=== PATIENT | male | born 1955 | race Caucasian/White ===

== ENCOUNTER 2025-02-20 12:01 | Day surgery (SDC) | payer OTHER, SELFPAY ==
[2025-02-20] VITALS (9 sets, daily range): BP systolic 125–149; BP diastolic 80–99; BMI 26.1
--- NOTE | 2025-02-20 15:17 | ITS.CL.PN ---
[facility] - Procedure Note
Procedure
Procedure Note:
CARDIAC CATHETERIZATION REPORT
Date of Procedure: 02/20/2025
Referring: Tyrone Munoz MD
Indication: Cardiomyopathy, NSVT
PROCEDURE(S)
1. left heart catheterization
2. coronary angiography
ACCESS: 6F right radial artery (closure: radial band)
CATHETERS
1. 6F JR4
2. 6F JL3.5
MODERATE SEDATION: 25 minutes of moderate sedation was utilized. An independent medical accounts receivable specialist was present to assist with and help manage the patient's level of consciousness and physiologic status.
HEMODYNAMIC DATA
LV 130/9 (EDP 14) mmHg
AO 136/78 (mean 102) mmHg
CORONARY ANGIOGRAPHY
Dominance: Right
LM: Large, normal
LAD: Large vessel giving rise to a small D1, moderate caliber D2, and wrapping around the apex. There are trivial luminal irregularities only.
LCx: Large vessel giving rise to a large OM1 and large LPL branch. There are mild luminal irregularities.
RCA: Large vessel giving rise to a moderate caliber RPDA and small RPL branch. There are mild luminal irregularities.
RADIATION: dose to 60.9 mGy; DAP 21.1838 Gy*cm2; fluoroscopy time 1.9 min
CONCLUSIONS
1. Nonobstructive coronary artery disease as described in a right dominant system
2. Mildly elevated LV filling pressure and no aortic stenosis
RECOMMENDATIONS
1. Primary prevention of coronary artery disease
2. Continue management of nonischemic cardiomyopathy
Copy to: Tyrone Munoz MD (electronic equipment installer); Veronique Mackenzie DO (PCP)
Signed: Atul Keith MD, PhD
== END 2025-02-20 18:00 | disposition home or self-care (01) ==
LOC: CATH 12:01
PROVIDERS: ATTENDING PHYSICIAN Student in an Organized Health Care Education/Training Program; FAMILY PHYSICIAN Family Medicine; OTHER PHYSICIAN Internal Medicine Cardiovascular Disease
DX: I25.10 Atherosclerotic heart disease of native coronary artery without angina pectoris (principal); I47.20 Ventricular tachycardia, unspecified; I42.9 Cardiomyopathy, unspecified; I42.8 Other cardiomyopathies; I10 Essential (primary) hypertension; E78.5 Hyperlipidemia, unspecified; Z86.73 Personal history of transient ischemic attack (TIA), and cerebral infarction without residual deficits; N40.0 Benign prostatic hyperplasia without lower urinary tract symptoms; I77.810 Thoracic aortic ectasia; Z79.82 Long term (current) use of aspirin; Z79.899 Other long term (current) drug therapy
CPT/HCPCS: 99152; 99153; 93458; C1894; Q9967